=== PATIENT | male | born 1970 | race African-American/Black ===

== ENCOUNTER 2021-02-22 12:17 | Emergency (ER) | payer OTHER, SELFPAY ==
--- NOTE | ~2021-02-22 | XR_ITS ---
EXAMINATION: XR CHEST CLINICAL INFORMATION: SOB COMPARISON: None TECHNIQUE: Frontal view of the chest was obtained. FINDINGS: The lungs are expanded and clear of acute pneumonic process. The heart size is enlarged. Pulmonary vascularity is normal. There is moderate spondylosis dorsal spine. No lytic process XR/XR chest 1V IMPRESSION: Mild cardiomegaly. Otherwise unremarkable chest exam.
--- NOTE | ~2021-02-22 | CT_ITS ---
EXAMINATION: CT HEAD WITHOUT CONTRAST CLINICAL INFORMATION: Double vision, headache COMPARISON: Portable chest 04/22/2021 TECHNIQUE: Contiguous axial imaging was performed from the skull base to vertex without intravenous administration of contrast. Additional 2-D coronal and sagittal reformatted images are generated on the CT workstation and uploaded to PACS. This CT examination was performed using dose optimization techniques as appropriate, variously including the following: *Automated exposure control *Adjustment of mA and/or kV according to patient size (this includes techniques or standardized protocols for targeted exams where dose is matched to indication/reason for exam; i.e. extremities or head) *Use of iterative reconstruction technique DLP: 981 mGy-cm FINDINGS: There is no intracranial hemorrhage, hematoma, or extra-axial fluid collection. The ventricles are normal in size. There is no hydrocephalus, edema, or mass effect. The prescott-white matter differentiation appears well preserved . There is no visible acute territorial infarct or mass lesion. The calvarium appears intact. There is no pneumocephalus or orbital emphysema. There is mucosal thickening inferior frontal sinuses and scattered mucosal thickening ethmoid air cells. The middle ears and mastoid air cells are well-aerated and clear. CT/CT head/brain wo con IMPRESSION: No acute intracranial abnormality.
[2021-02-22 13:28] VITALS: BP 154/94; PULSE 72; RESP 18; TEMP 36.8; O2SAT 98; BMI 39.5
--- NOTE | 2021-02-22 15:08 | ECG_ITS ---
Test Reason : GENERAL MEDICAL Blood Pressure : / mmHG Vent. Rate : 067 BPM Atrial Rate : 067 BPM P-R Int : 172 ms QRS Dur : 094 ms QT Int : 416 ms P-R-T Axes : -09 039 057 degrees QTc Int : 439 ms Normal sinus rhythm Nonspecific T wave abnormality Borderline ECG No previous ECGs available Referred By: Marsha Chin Electronically Signed By:YOJANA FREITAS
--- NOTE | 2021-02-22 15:16 | ED.GENADULT ---
HPI - General Adult General Chief complaint: General Medical Stated complaint: feet swollen Time Seen by Provider: 02/22/21 15:04 Source: patient Mode of arrival: ambulatory Limitations: no limitations History of Present Illness HPI narrative: This is a 50-year-old male past medical history significant for obesity and hypertension presenting to the emergency department with bilateral lower extremity swelling, and pain to bilateral lower extremities. Patient tells me that this has been going on for about 4 months, and it has been progressively worsening. He also mentions that the bottom of his heels have been cracking lately, and he has been developing sores in his anterior shins. He tells me that it is gotten to the point where he is unable to ambulate at home, he also reports associated shortness of breath, particularly with exertion. He also mentions that lately he has been experiencing double vision however he is unsure why this is happening. He tells me that he has not seen his primary care provider for this. He tells me that the only thing that sort of makes it better is is methadone which he takes in the morning. Other than that he tells me that this is interfering with his daily life. Onset (ago): month(s) (4) Location: left, right and lower extremity Radiation: non-radiation Severity: severe Severity scale (1-10): >10 Quality: aching and constant Pain Consistency: constant Relieving factors: other (His methadone dose in the morning.) Exacerbating factors: none Associated symptoms: shortness of breath Treatments prior to arrival: none Related Data Previous Rx's Medication Instructions Recorded furosemide 20 mg tablet (Lasix) 20 mg PO DAILY #30 tab 02/22/21 Allergies Allergy/AdvReac Type Severity Reaction Status Date / Time Unable to Assess Allergy Verified 02/22/21 18:28 Review of Systems Review of Systems: Constitutional : No Weight loss, No Fever, No Chills, No Fatigue, No Malaise ENT/Mouth : No sore throat, No Rhinorrhea, + diplopia Eyes: No Eye Pain, No Swelling, No Redness Cardiovascular : No Chest Pain, + SOB, + Dyspnea on Exertion, No Orthopnea, + Edema, No Palpitations Respiratory : No Cough, No Sputum, No Wheezing Gastrointestinal : No Nausea, No Vomiting, No Diarrhea, No Constipation, No abdominal Pain, No Hematochezia, No Melena Genitourinary : No Dysuria, No Urinary Frequency, No Hematuria, Musculoskeletal : No joint pain, No Myalgias, No Joint Swelling Skin : No Skin Lesions, No rash Neuro : No Weakness, No Numbness, No Dizziness, No Headache All other systems reviewed and are negative Yes all other systems are reviewed and are negative [facility], [facility] Past Medical History Attestation statement: The following information was validated with the patient. Source: old records reviewed and nursing notes reviewed Medical History (Updated 02/22/21 @ 18:11 by REED Whitman) HTN (hypertension) Social History Social History Advance Directives: No Advance Directives Information Provided: No Physical Exam Vital Signs: Vital Signs: Last Vital Signs Temp 97.4 F 02/22/21 20:37 Pulse 87 02/22/21 20:37 Resp 17 02/22/21 20:37 BP 184/94 H 02/22/21 20:37 Pulse Ox 96 02/22/21 20:37 BMI result Body Mass Index 39.5 Patient noted to be hypertensive, all other vital signs within normal limits. Appearance: Alert.? Oriented X3.? No acute distress.? Head: Normocephalic, atraumatic, no step-offs or deformities Eyes: Pupils equal, round and reactive to light.?Extraocular movements intact. Visual mcknight by confrontation intact. ENT: Pharynx normal.? Neck: Normal inspection.? Neck supple.? CVS: Normal heart rate and rhythm.? Pulses normal.? Respiratory: No respiratory distress.? Breath sounds normal.? Abdomen: Soft and nontender.? Skin: Skin warm and dry.? Normal skin color.? Normal skin turgor.? Extremities: + 3+ nonpitting edema bilaterally. No calf ttp. 5/5 strength to bilateral upper and lower extremities + calluses to bilateral lower extremities on the plantar aspect. Back: No midline tenderness, no C-spine tenderness, full range of motion, no CVA tenderness bilaterally Neuro: Oriented X 3.? No motor deficit.? No sensory deficit. Course Reevaluation(s) Reevaluation #1: Chest x-ray significant for cardiomegaly, head CT no acute findings. No leukocytosis, normocytic anemia is noted, likely patient's baseline, he is not complaining of any bleeding at this time. Chemistry within normal limits no acute electrolyte abnormalities. BNP within normal limits. Troponin slightly elevated will repeat to ensure this is not meeting criteria for ACS. At this time patient is denying chest pain. Patient's history and physical examination not consistent with DVT. Swelling is bilaterally, negative Homans sign bilaterally. Time: 18:09 Reevaluation #2: Second troponin was ordered however patient is a very difficult stick. Multiple techs tried, nurses and phlebotomy. Will continue to try. Time: 20:19 Reevaluation #3: Troponin flat. Unlikely ACS, patient not complaining of chest pain. At this time patient diagnosis is bilateral lower extremity edema. I will start him on at home 20 mg Lasix p.o. daily. I have advised him to follow-up with the PCP. I have given him a list of local PCPs to follow up with and make an appointment with. I have also advised to return to the emergency department with new or worsening symptoms such as shortness of breath, nausea, vomiting, abdominal pain, chest pain, weakness, headache or dizziness. Time: 21:06 Medical Decision Making [facility] Narrative Medical decision making narrative: 1520 50 yo m pmhx htn presents w/ diplopia, sob on exertion, and bilateral non pitting edema X4 months progressively worsening Upon physical examination there is bilateral 3+ nonpitting edema. There are calluses to the plantar aspect of bilateral feet. Regular rate and rhythm. Lungs are clear. Abdomen soft nontender nondistended. Neurological exam nonfocal. Extraocular movements intact. Visual mcknight by confrontation intact. Pupils equal round and reactive to light bilaterally. No nystagmus. Plan at this time is to obtain basic labs, BNP, COVID, troponin, chest x-ray, CT of head and brain, ECG. Will rule out heart failure, pneumonia, electrolyte abnormalities, intracranial pathologies. Lab Data Result diagrams: 02/22/21 16:52 02/22/21 16:51 Labs: Lab Results 02/22/21 02/22/21 02/22/21 Range/Units 16:51 16:51 16:52 WBC 5.3 (4.8-10.8) X10*3/uL RBC 3.87 L (4.60-5.80) X10*6/uL Hgb 9.6 L (14.0-18.0) g/dl Hct 31.9 L (42.0-52.0) % MCV 82.4 (80.0-98.0) fL MCH 24.8 L (27.0-33.0) pg MCHC 30.1 L (31.0-36.0) g/dl RDW 18.4 H (11.0-16.0) % Plt Count 243 (160-400) X10*3/uL MPV 10.1 (9.4-12.4) fL Immature Gran % (Auto) 0.6 H (0.0-0.4) % Neut % (Auto) 46.4 (45-73) % Lymph % (Auto) 37.6 (20-40) % Sauk % (Auto) 9.4 (2-11) % Eos % (Auto) 5.4 H (0-4) % Baso % (Auto) 0.6 (0-2) % Lymph # (Auto) 2.0 (1.2-4.9) X10*3/uL Sauk # (Auto) 0.5 (0.1-1.2) X10*3/uL Eos # (Auto) 0.3 (0.0-0.4) X10*3/uL Baso # (Auto) 0.0 (0.0-0.2) X10*3/uL Abs Immat Gran (auto) 0.03 (0.00-0.03) X10*3/uL Absolute Neuts (auto) 2.5 (2.0-8.3) x10*3/uL Absolute Nucleated RBC 0.000 (0.0-0.012) X10*3/uL Nucleated RBC % (auto) 0.0 (0.0-0.2) /100WBC Sodium 136 (135-145) mmol/L Potassium 4.9 (3.3-5.1) mmol/L Chloride 104 (96-108) mmol/L Carbon Dioxide 23 (22-29) mmol/L Anion Gap 14 (12-20) BUN 14 (9-16) mg/dL Creatinine 0.94 (0.5-1.4) mg/dL Estim Creat Clear Calc 114.6 Estimated GFR > 60 Random Glucose 96 (60-115) mg/dL Calcium 9.0 (8.4-10.2) mg/dL Magnesium 2.3 (1.6-2.6) mg/dL Total Bilirubin 0.2 (0.0-1.0) mg/dL AST 20 (5-37) U/L ALT 16 (0-40) U/L Alkaline Phosphatase 62 (39-117) U/L Troponin I High Sens 17.3 (<3.5-35.0) ng/L B-Natriuretic Peptide 43 (<100) pg/mL Total Protein 9.0 H (6.5-8.0) g/dL Albumin 3.3 L (3.5-5.0) g/dL COVID-19 (SHAYY) (Negative) COVID-19 Clin Com 02/22/21 02/22/21 Range/Units 16:54 20:29 WBC (4.8-10.8) X10*3/uL RBC (4.60-5.80) X10*6/uL Hgb (14.0-18.0) g/dl Hct (42.0-52.0) % MCV (80.0-98.0) fL MCH (27.0-33.0) pg MCHC (31.0-36.0) g/dl RDW (11.0-16.0) % Plt Count (160-400) X10*3/uL MPV (9.4-12.4) fL Immature Gran % (Auto) (0.0-0.4) % Neut % (Auto) (45-73) % Lymph % (Auto) (20-40) % Sauk % (Auto) (2-11) % Eos % (Auto) (0-4) % Baso % (Auto) (0-2) % Lymph # (Auto) (1.2-4.9) X10*3/uL Sauk # (Auto) (0.1-1.2) X10*3/uL Eos # (Auto) (0.0-0.4) X10*3/uL Baso # (Auto) (0.0-0.2) X10*3/uL Abs Immat Gran (auto) (0.00-0.03) X10*3/uL Absolute Neuts (auto) (2.0-8.3) x10*3/uL Absolute Nucleated RBC (0.0-0.012) X10*3/uL Nucleated RBC % (auto) (0.0-0.2) /100WBC Sodium (135-145) mmol/L Potassium (3.3-5.1) mmol/L Chloride (96-108) mmol/L Carbon Dioxide (22-29) mmol/L Anion Gap (12-20) BUN (9-16) mg/dL Creatinine (0.5-1.4) mg/dL Estim Creat Clear Calc Estimated GFR Random Glucose (60-115) mg/dL Calcium (8.4-10.2) mg/dL Magnesium (1.6-2.6) mg/dL Total Bilirubin (0.0-1.0) mg/dL AST (5-37) U/L ALT (0-40) U/L Alkaline Phosphatase (39-117) U/L Troponin I High Sens 17.4 (<3.5-35.0) ng/L B-Natriuretic Peptide (<100) pg/mL Total Protein (6.5-8.0) g/dL Albumin (3.5-5.0) g/dL COVID-19 (SHAYY) Negative (Negative) COVID-19 Clin Com See Note Imaging Data Chest x-ray: Attestation: I personally reviewed and interpreted this imaging study as follows: Radiologist's impression: FINDINGS: The lungs are expanded and clear of acute pneumonic process. The heart size is enlarged. Pulmonary vascularity is normal. There is moderate spondylosis dorsal spine. No lytic process XR/XR chest 1V IMPRESSION: Mild cardiomegaly. Otherwise unremarkable chest exam. CT scan - head: Attestation: I personally reviewed and interpreted this imaging study as follows: Radiologist's impression: FINDINGS: There is no intracranial hemorrhage, hematoma, or extra-axial fluid collection.? The ventricles are normal in size. There is no hydrocephalus, edema, or mass effect.? The prescott-white matter differentiation appears well preserved . There is no visible acute territorial infarct or mass lesion. The calvarium appears intact. There is no pneumocephalus or orbital emphysema.? There is mucosal thickening inferior frontal sinuses and scattered mucosal thickening ethmoid air cells. The middle ears and mastoid air cells are well-aerated and clear. CT/CT head/brain wo con IMPRESSION: No acute intracranial abnormality ECG Data Attestation: I personally reviewed and interpreted this ECG as follows: Prior ECG tracings: not available for review Interpretation: Ventricular rate of 67, DC normal, QRS normal, QT/QTC normal. EKG shows normal sinus rhythm, no ST elevations or inversions that are concerning for ischemia. No previous EKGs to compare with. Critical Care Time Critical Care Time Critical Care Time: No Discharge Plan Discharge Clinical Impression: Bilateral edema of lower extremity Patient Disposition: Home, Self-Care Instructions: Leg Edema (ED), Edema (ED) Additional Instructions: Take your medications as prescribed. If you were prescribed antibiotics today, it is important that you take your medication to their entirety, do not skip any doses, do not finish them early. Follow-up with your primary care provider this week. I have given you a list of PCPs in the area. Return to the emergency department with new or worsening symptoms. In case of emergency call 911 I am sending you home with a new medication called Lasix, this is a water pill, it will make you urinate frequently. This should help reduce swelling to bilateral lower extremities. If you are having adverse effects from this medication please stop it. Prescriptions: New furosemide [Lasix] 20 mg tablet 20 mg PO DAILY Qty: 30 RF: 0 Referrals: Gregorio Reyes NP [Primary Care Provider] - 2 days Stand Alone Forms: Work/School Release
[2021-02-22 16:55] LABS: MANUAL DIFF FLAG NO
[2021-02-22 16:57] LABS: Basophils Percent Auto 0.6 % (0-2); Eosinophils Absolute Auto 0.3 X10*3/uL (0.0-0.4); Eosinophils Percent Auto 5.4 % (0-4); Hematocrit 31.9 % (42.0-52.0); Hemoglobin 9.6 g/dl (14.0-18.0); Imm Gran Abs Auto 0.03 X10*3/uL (0.00-0.03); Imm Gran Pct Auto 0.6 % (0.0-0.4); Lymphocytes Percent Auto 37.6 % (20-40); Mean Corpuscular HGB Conc 30.1 g/dl (31.0-36.0); Mean Corpuscular Hemoglobin 24.8 pg (27.0-33.0); Mean Corpuscular Volume 82.4 fL (80.0-98.0); Mean Platelet Volume 10.1 fL (9.4-12.4); Monocytes Absolute Auto 0.5 X10*3/uL (0.1-1.2); Monocytes Percent Auto 9.4 % (2-11); Neutrophils Absolute Auto 2.5 x10*3/uL (2.0-8.3); Neutrophils Percent Auto 46.4 % (45-73); Platelet Count 243 X10*3/uL (160-400); Red Blood Count 3.87 X10*6/uL (4.60-5.80); Red Cell Distribution Width 18.4 % (11.0-16.0); White Blood Count 5.3 X10*3/uL (4.8-10.8)
[2021-02-22 17:12] VITALS: BP 140/77; PULSE 75; RESP 20; TEMP 36.8; O2SAT 97
[2021-02-22 17:19] LABS: B Type Natriuretic Peptide 43 pg/mL (<100); Troponin-I High Sensitivity 17.3 ng/L (<3.5-35.0)
[2021-02-22 17:23] LABS: COVID-19 Test Negative (Negative)
[2021-02-22 17:38] LABS: Alanine Aminotransferase 16 U/L (0-40); Albumin Level 3.3 g/dL (3.5-5.0); Alkaline Phosphatase 62 U/L (39-117); Anion Gap 14 (12-20); Aspartate Amino Transferase 20 U/L (5-37); Bilirubin Total 0.2 mg/dL (0.0-1.0); Blood Urea Nitrogen 14 mg/dL (9-16); Carbon Dioxide 23 mmol/L (22-29); Chloride 104 mmol/L (96-108); Creatinine Clr Calc Pharmacy 114.6; Estimated Glomerular Filt Rate > 60; Glucose Random 96 mg/dL (60-115); Magnesium 2.3 mg/dL (1.6-2.6); Potassium 4.9 mmol/L (3.3-5.1); Sodium 136 mmol/L (135-145)
--- NOTE | 2021-02-22 18:27 | PC.NURSE ---
Pt has taught lower extremities. calloused soles of feet. no open wounds or drainage. no SOB. no complaints of DONOVAN or CP. awaits repeat troponin.
[2021-02-22 20:37] VITALS: BP 184/94; PULSE 87; RESP 17; TEMP 36.3; O2SAT 96
[2021-02-22 20:57] LABS: Troponin-I High Sensitivity 17.4 ng/L (<3.5-35.0)
== END 2021-02-22 21:12 | disposition home or self-care (01) ==
PROVIDERS: Physician Assistant; Emergency Provider Emergency Medicine; PCP Nurse Practitioner Family
DX: R60.0 Localized edema (principal); R06.02 Shortness of breath; R51.9 Headache, unspecified; H53.2 Diplopia; Z20.822 Contact with and (suspected) exposure to COVID-19; Z79.899 Other long term (current) drug therapy
CPT/HCPCS: 36415; 70450; 71045; 80053; 83735; 83880; 84484; 85025; 87635; 93005; 99284